=== PATIENT | female | born 1985 | race Hispanic/Latino ===

== ENCOUNTER 2017-07-12 06:29 | Day surgery (SDC) | payer BC ==
[2017-07-09 09:04] VITALS: BMI 29.6
[2017-07-12] MEDS ORDERED: Midazolam 2 MG/2 ML VIAL ONE ×2 (07:31→09:57)
[2017-07-12] MEDS ORDERED: Propofol 10 mg/ml Inj (20 ML) ONE ×2 (07:31→09:57)
[2017-07-12] MEDS ORDERED: Phenylephrine 10 mg/ml Inj ONE (07:33)
[2017-07-12] MEDS ORDERED: Phenylephrine 0.5% Nasal Spray (15 ml) ONE (07:44)
[2017-07-12] MEDS: Lactated Ringer's 1,000 ML IV ONE ×2 (09:57→10:36)
[2017-07-12] MEDS ORDERED: HYDROmorphone 0.5 mg/0.5 ml ISec IVP PRN (10:36)
--- NOTE | 2017-07-12 10:43 | PCM.SURG1 ---
Surgeon's Initial Post Op Note - Surgeon's Notes Surgeon: Jailyn Miles MD Director Prospect: none Type of Anesthesia: General LMA Pre-Operative Diagnosis: Retained intrauterine device Operative Findings: retained IUD near fundus anterior surface, bilateral ostia visualized, urine output 50 cc clear yellow urine, good hemostasis Post-Operative Diagnosis: same as above Operation Performed: Hysteroscopic Intrauterine device remomal of foregin body Specimen/Specimens Removed: intrauterine device Estimated Blood Loss: EBL {In ML}: 5 Blood Products Given: N/A Drains Used: No Drains Post-Op Condition: Good Date of Surgery/Procedure: 07/12/17 Time of Surgery/Procedure: 10:00
[2017-07-12 10:54] VITALS: O2SAT 100
[2017-07-12 11:59] VITALS: BP 110/70; PULSE 81; RESP 18; TEMP 97
--- NOTE | 2017-07-12 21:45 | OP ---
PROCEDURE DATE: 07/12/2017 SURGEON: Jailyn Miles MD. [employer] SUPERVISOR: None. TYPE OF ANESTHESIA: General LMA. PREOPERATIVE DIAGNOSIS: Retained intrauterine device. POSTOPERATIVE DIAGNOSIS: Retained intrauterine device. OPERATION PERFORMED: Hysteroscopic intrauterine device removal of foreign body plus removal of intrauterine device. OPERATIVE FINDINGS: Retained intrauterine device, , bilateral ostia visualized. URINE OUTPUT: 30 mL of clear yellow urine. ESTIMATED BLOOD LOSS: 5 mL. BLOOD PRODUCTS: None. COMPLICATIONS: None. DESCRIPTION OF PROCEDURE: The patient was taken to the operating room where she was given general anesthesia. Once it was found to be adequate, she was placed on the operating table in dorsal supine position with legs supported using stirrups. The patient was then prepped and draped in the usual sterile fashion. A timeout confirmed correct patient and correct procedure. A red rubber catheter was inserted into the urethra to drain the bladder. Following this, a Higgins retractor was placed on the anterior and posterior fornix of the vagina with above-mentioned findings after bimanual exam. Cervix was adequately visualized. A single-tooth tenaculum was placed on the anterior lip of the cervix and the uterus was then sounded to 8 cm. Following this, the IUD hook was then inserted, was unable to remove the intrauterine device. The hysteroscope was then inserted under direct visualization using normal saline as the distention media. The IUD was embedded on the anterior with the strings noted close to the fundal region. The hysteroscope grasper was then inserted under direct visualization and the IUD was carefully embedded and resected and removed intact. The hysteroscope was then re-introduced and there was bilateral ostia visualized, also removed. There was good hemostasis at the tenaculum puncture site. At the end of the procedure, all needles, sponge and instrument counts were noted correct x2. The patient tolerated the procedure well and was transferred to the recovery room in stable condition. Jailyn Miles MD
== END 2017-07-12 14:04 | disposition home or self-care (01) ==
LOC: C.SDS 06:29
PROVIDERS: ATTEND Obstetrics & Gynecology
DX: Z18.9 Retained foreign body fragments, unspecified material (principal)
CPT/HCPCS: 58301; 58562; 88300; J1170; J2250; J2370; J2405; J2704; J3010; J7120